=== PATIENT | female | born 1960 | race Caucasian/White ===

== ENCOUNTER 2024-12-03 07:29 | Day surgery (SDC) | payer BC ==
[2024-12-03] MEDS: Lactated Ringers 1,000 ML IV SCH (08:03)
[2024-12-03] MEDS ORDERED: fentaNYL 50 MCG/ML SDV ONE (08:15)
[2024-12-03] MEDS ORDERED: Propofol 200 MG/20 ML SDV ONE ×2 (08:15→08:48)
[2024-12-03] MEDS ORDERED: Midazolam 1 MG/ML 2 ML SDV ONE (08:15)
== END 2024-12-03 10:34 | disposition home or self-care (01) ==
LOC: JP.SDS 07:29
PROVIDERS: ATTEND Surgery
DX: Z12.11 Encounter for screening for malignant neoplasm of colon (principal); K64.8 Other hemorrhoids; K21.9 Gastro-esophageal reflux disease without esophagitis; E78.5 Hyperlipidemia, unspecified; J45.909 Unspecified asthma, uncomplicated; Z91.040 Latex allergy status
CPT/HCPCS: 45378; J2250; J2704; J3010; J7120; 00812-QZ